=== PATIENT | female | born 1945 | race Caucasian/White ===

== ENCOUNTER → 2023-12-21 07:40 | Outpatient (REF) | payer OTHER, SELFPAY | LOC: EMG 07:40 | PROVIDERS: ATTENDING PHYSICIAN Podiatrist; FAMILY PHYSICIAN Family Medicine | DX: R20.2 Paresthesia of skin (principal); G62.9 Polyneuropathy, unspecified | CPT/HCPCS: 95886; 95911 ==

== ENCOUNTER → 2024-10-24 12:23 | Outpatient (REF) | payer OTHER, SELFPAY | LOC: HWWDC 12:23 | PROVIDERS: ATTENDING PHYSICIAN Family Medicine | DX: Z12.31 Encounter for screening mammogram for malignant neoplasm of breast (principal) | CPT/HCPCS: 77063; 77067 ==

== ENCOUNTER 2025-01-06 16:21 | Emergency (ER) | payer SELFPAY ==
[2025-01-06 16:22] VITALS: BP 153/82
[2025-01-06 19:41] VITALS: BMI 21.1
[2025-01-06 19:58] VITALS: BP 166/90
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
[2025-01-06] MEDS: TYLENOL 650 MG PO (20:08)
== END 2025-01-06 20:36 | disposition home or self-care (01) ==
LOC: EMR 16:21
PROVIDERS: EMERGENCY PHYSICIAN Emergency Medicine; FAMILY PHYSICIAN Family Medicine
DX: Z04.1 Encounter for examination and observation following transport accident (principal); V43.52XA Car driver injured in collision with other type car in traffic accident, initial encounter
CPT/HCPCS: 99283